=== PATIENT | female | born 1960 | race African-American/Black ===

== ENCOUNTER 2021-11-06 10:29 | Inpatient (IN) | payer BC, OTHER ==
[2021-11-06] VITALS (16 sets, daily range): BP systolic 69–110; BP diastolic 48–64
[~2021-11-06] VITALS: Ht 160 cm; Wt 123.8 kg
[2021-11-06] MEDS ORDERED: ETOMIDATE 2MG/ML 10ML VIAL IV ONE (11:15)
[2021-11-06] MEDS ORDERED: ROCURONIUM BROMIDE 10MG/ML VIAL 5ML IV ONE (11:15)
[2021-11-06] MEDS ORDERED: NOREPINEPHRINE 8MG/250ML PMX 250 ML IV ONE (11:30)
[2021-11-06] MEDS ORDERED: SODIUM CHLORIDE 0.9% 1,000 ML IV ONE ×3 (11:30→13:15)
[2021-11-06] MEDS ORDERED: NOREPINEPHRINE 8MG/250ML PMX 250 ML IV PRN ×3 (11:45→21:00)
[2021-11-06] MEDS ORDERED: MIDAZOLAM HCL 100 MG in DEXT 5% WATER 80 ML IV ONE (12:15)
[2021-11-06] MEDS ORDERED: MIDAZOLAM HCL 2 MG/2 ML VIAL IV ONE (12:15)
[2021-11-06] MEDS ORDERED: MIDAZOLAM HCL 100 MG in DEXT 5% WATER 80 ML IV PRN (12:15)
[2021-11-06] MEDS ORDERED: LIDOCAINE HCL 1% 20ML VIAL (Pyxis) INJ ONE (12:43)
[2021-11-06] MEDS ORDERED: PHENYLEPHRINE 50 MG in DEXT 5% WATER 245 ML IV PRN ×2 (13:15→13:30)
[2021-11-06] MEDS ORDERED: VANCOMYCIN 1G PREMIX 200 ML IV ONE (13:15)
[2021-11-06] MEDS ORDERED: PIPERACILLIN/TAZ 3.375G PREMIX 50 ML IV ONE (13:15)
[2021-11-06 13:23] LABS: BG BASE EXCESS -30.3 mmol/L (-2.0-2.0); BG CARBOXYHEMOGLOBIN 0.3 % (0.5-1.5); BG DEOXYHEMOGLOBIN 0.1 % (0.0-5.0); BG FRACTION INSPIRED OXYGEN 100; BG METHEMOGLOBIN 0.3 % (0.0-1.5); BG OXYGEN SATURATION 99.9 % (92.0-98.5); BG OXYHEMOGLOBIN 99.3 % (94.0-97.0); BG PCO2 19.6 mmHg (35.0-45.0); BG PH 6.808 (7.350-7.450); BG PO2 > 602.7 mmHg (75.0-100.0); BG SAMPLE SITE LEFT BRACHIAL; BG TOTAL HEMOGLOBIN 11.7 g/dL (12.0-18.0); BG VENT MODE VENT - AC
[2021-11-06] MEDS ORDERED: VANCOMYCIN 1GM PMX (XELLIA) 200 ML IV NR (13:30)
[2021-11-06] MEDS ORDERED: SODIUM BICARBONATE 8.4% 1 MEQ/ML 50ML SYR IV ONE (13:30)
[2021-11-06 14:10] LABS: CLARITY URINE CLEAR (CLEAR); COLOR URINE YELLOW (YELLOW); KETONES URINE 4+ (NEGATIVE); LEUKOCYTE ESTERASE URINE NEGATIVE (NEGATIVE); NITRITE URINE NEGATIVE (NEGATIVE); OCCULT BLOOD URINE TRACE (NEGATIVE); PROTEIN URINE 1+ (NEGATIVE); SPECIFIC GRAVITY URINE 1.022 (1.005-1.030); UROBILINOGEN URINE 0.2 E.U./dL (0.2-1.0)
[2021-11-06 14:26] LABS: *BENZODIAZEPINES SCREEN URINE NEGATIVE (NEGATIVE); *COCAINE SCREEN URINE PRESUMTIVE POSITIVE (NEGATIVE)
[2021-11-06 14:27] LABS: *AMPHETAMINES SCREEN URINE NEGATIVE (NEGATIVE); *BARBITURATES SCREEN URINE NEGATIVE (NEGATIVE); CANNABINOID URINE SCREEN NEGATIVE (NEGATIVE); METHADONE URINE SCREEN NEGATIVE (NEGATIVE); OPIATES URINE SCREEN NEGATIVE (NEGATIVE); PHENCYCLIDINE URINE SCREEN NEGATIVE (NEGATIVE)
[2021-11-06 14:40] LABS: HEMATOCRIT. 40.3 % (36.0-48.0); HEMOGLOBIN. 11.5 g/dL (12.0-16.0); MEAN CORPUSCULAR HEMOGLOBIN 26.2 pg (28.0-32.0); MEAN CORPUSCULAR VOLUME 91.8 fL (81.0-99.0); MEAN PLATELET VOLUME 10.3 fl (7.4-10.4); PLATELET 148 x1000/uL (130-400); RED BLOOD CELL COUNT 4.39 mill/uL (4.2-5.4); RED CELL DISTRIBUTION WIDTH 14.4 % (11.6-14.6)
[2021-11-06 14:47] LABS: CHLORIDE 107 mEq/L (98-107)
[2021-11-06 15:04] LABS: NUCLEATED RED BLOOD CELLS 1 /100 WBC; PLATELET ESTIMATE NORMAL
[2021-11-06 15:45] LABS: BETA HYDROXYBUTYRATE 14.3 mMol/L (0.0-0.3)
[2021-11-06] MEDS ORDERED: IPRATROPIUM/ALBUTEROL 0.5-3(2.5)MG/3ML NEB HHN PRN (15:45)
[2021-11-06] MEDS ORDERED: PIPERACILLIN/TAZOBACTAM 3.375 G in DEXTROSE 5% WATER 50 ML IV SCH (16:00)
[2021-11-06] MEDS ORDERED: SODIUM BICARBONATE 150 MEQ in SODIUM CHLORIDE 0.45% 1,000 ML IV SCH (16:30)
[2021-11-06] MEDS: PANTOPRAZOLE SODIUM 40 MG/VIAL IV SCH (18:17)
[2021-11-06 18:26] LABS: BG BASE EXCESS -28.3 mmol/L (-2.0-2.0); BG CARBOXYHEMOGLOBIN 0.5 % (0.5-1.5); BG DEOXYHEMOGLOBIN 0.2 % (0.0-5.0); BG FRACTION INSPIRED OXYGEN 70; BG HCO3 ACT 3.4 mmol/L (22.0-26.0); BG METHEMOGLOBIN 0.4 % (0.0-1.5); BG OXYGEN SATURATION 99.8 % (92.0-98.5); BG OXYHEMOGLOBIN 98.9 % (94.0-97.0); BG PCO2 17.6 mmHg (35.0-45.0); BG PH 6.901 (7.350-7.450); BG PO2 399.7 mmHg (75.0-100.0); BG SAMPLE SITE RIGHT RADIAL; BG TOTAL HEMOGLOBIN 13.4 g/dL (12.0-18.0); BG VENT MODE VENT - AC
[2021-11-06] MEDS ORDERED: SODIUM BICARBONATE 8.4% 1 MEQ/ML 50ML SYR IV NR ×2 (18:45→23:15)
[2021-11-06] MEDS ORDERED: PHENYLEPHRINE 50 MG in DEXTROSE 5% WATER 250 ML IV PRN (21:00)
[2021-11-06] MEDS ORDERED: SODIUM CHLORIDE 0.9% 1,000 ML IV SCH (21:45)
[2021-11-06] MEDS ORDERED: INSULIN REGULAR (DRIP) 100 UNITS in SODIUM CHLORIDE 0.9% 99 ML IV PRN (21:45)
[2021-11-06] MEDS ORDERED: ONDANSETRON HCL 4MG/2ML INJ IV PRN (21:45)
[2021-11-06] MEDS ORDERED: VASOPRESSIN 20 UNIT in SODIUM CHLORIDE 0.9% 99 ML IV PRN (21:45)
[2021-11-06] MEDS ORDERED: DEXTROSE 50% WATER 50ML SYRINGE IV PRN (22:00)
[2021-11-06] MEDS ORDERED: INSULIN REGULAR (DRIP) 100 UNITS in SODIUM CHLORIDE 0.9% 100 ML IV SCH (22:00)
[2021-11-06] MEDS: BLOOD SUGAR DIAGNOSTIC STRIP TEST SCH ×2 (22:15→23:13)
[2021-11-06] MEDS: SODIUM CHLORIDE 0.9% 1,000 ML IV SCH (22:15)
[2021-11-06] MEDS: INSULIN REGULAR 100U/100ML PMX 100 ML IV SCH (22:15)
[2021-11-06] MEDS: PIPERACILLIN/TAZOBACTAM 3.375 G in DEXTROSE 5% WATER 50 ML IV SCH (22:17)
[2021-11-06 22:54] LABS: BG BASE EXCESS -25.1 mmol/L (-2.0-2.0); BG CARBOXYHEMOGLOBIN 0.5 % (0.5-1.5); BG DEOXYHEMOGLOBIN 1.2 % (0.0-5.0); BG FRACTION INSPIRED OXYGEN 40; BG METHEMOGLOBIN 0.4 % (0.0-1.5); BG OXYGEN SATURATION 98.8 % (92.0-98.5); BG OXYHEMOGLOBIN 97.9 % (94.0-97.0); BG PCO2 15.7 mmHg (35.0-45.0); BG PH 7.023 (7.350-7.450); BG PO2 153.5 mmHg (75.0-100.0); BG SAMPLE SITE LEFT RADIAL; BG TOTAL HEMOGLOBIN 12.8 g/dL (12.0-18.0); BG TOTAL RESPIRATORY RATE 38 b/min; BG VENT MODE VENT - AC
[2021-11-06] MEDS: PHENYLEPHRINE 100 MG in DEXT 5% WATER 240 ML IV PRN (23:15)
[2021-11-07] VITALS (97 sets, daily range): BP systolic 80–157; BP diastolic 26–75
[2021-11-07] MEDS: BLOOD SUGAR DIAGNOSTIC STRIP TEST SCH ×22 (00:23→23:41)
[2021-11-07 00:25] LABS: BASOPHILS % 0.4 % (0.0-2.0); EOSINOPHILS % 0.5 % (0.0-5.0); HEMATOCRIT. 38.6 % (36.0-48.0); HEMOGLOBIN. 11.2 g/dL (12.0-16.0); LYMPHOCYTES % 9.6 % (20.0-50.0); MEAN CORPUSCULAR HEMOGLOBIN 26.4 pg (28.0-32.0); MEAN CORPUSCULAR VOLUME 90.7 fL (81.0-99.0); MEAN PLATELET VOLUME 10.3 fl (7.4-10.4); MONOCYTES % 1.1 % (2.0-8.0); NEUTROPHILS % 88.4 % (40.0-76.0); PLATELET 161 x1000/uL (130-400); RED BLOOD CELL COUNT 4.25 mill/uL (4.2-5.4)
[2021-11-07 00:36] LABS: PHOSPHORUS 7.8 mg/dL (2.5-4.9)
[2021-11-07] MEDS: SODIUM CHLORIDE 0.9% 1,000 ML IV SCH ×2 (01:57→06:23)
[2021-11-07] MEDS: IPRATROPIUM/ALBUTEROL 0.5-3(2.5)MG/3ML NEB HHN SCH ×4 (02:24→19:41)
[2021-11-07] MEDS: INSULIN REGULAR 100U/100ML PMX 100 ML IV SCH ×4 (03:20→15:21)
[2021-11-07] MEDS: PHENYLEPHRINE 100 MG in DEXT 5% WATER 240 ML IV PRN ×3 (03:25→15:11)
[2021-11-07] MEDS: NOREPINEPHRINE 8 MG in DEXT 5% WATER 242 ML IV PRN ×2 (03:30→08:38)
[2021-11-07 05:27] LABS: BASOPHILS % 0.1 % (0.0-2.0); EOSINOPHILS % 0.6 % (0.0-5.0); HEMATOCRIT. 37.2 % (36.0-48.0); HEMOGLOBIN. 11.4 g/dL (12.0-16.0); LYMPHOCYTES % 8.3 % (20.0-50.0); MEAN CORPUSCULAR HEMOGLOBIN 26.6 pg (28.0-32.0); MEAN CORPUSCULAR VOLUME 86.4 fL (81.0-99.0); MEAN PLATELET VOLUME 10.1 fl (7.4-10.4); MONOCYTES % 1.9 % (2.0-8.0); NEUTROPHILS % 89.1 % (40.0-76.0); PLATELET 160 x1000/uL (130-400); RED BLOOD CELL COUNT 4.31 mill/uL (4.2-5.4); RED CELL DISTRIBUTION WIDTH 13.5 % (11.6-14.6)
[2021-11-07 05:35] LABS: PHOSPHORUS 2.5 mg/dL (2.5-4.9)
[2021-11-07] MEDS: PIPERACILLIN/TAZOBACTAM 3.375 G in DEXTROSE 5% WATER 50 ML IV SCH ×3 (06:44→22:22)
[2021-11-07 08:27] LABS: BG BASE EXCESS -8.2 mmol/L (-2.0-2.0); BG CARBOXYHEMOGLOBIN 0.3 % (0.5-1.5); BG DEOXYHEMOGLOBIN 0.9 % (0.0-5.0); BG METHEMOGLOBIN 0.3 % (0.0-1.5); BG OXYGEN SATURATION 99.1 % (92.0-98.5); BG OXYHEMOGLOBIN 98.5 % (94.0-97.0); BG PCO2 24.9 mmHg (35.0-45.0); BG PH 7.399 (7.350-7.450); BG PO2 191.2 mmHg (75.0-100.0); BG SAMPLE SITE RIGHT RADIAL; BG TOTAL HEMOGLOBIN 11.6 g/dL (12.0-18.0); BG VENT MODE VENT - AC
[2021-11-07] MEDS: PANTOPRAZOLE SODIUM 40 MG/VIAL IV SCH (08:41)
[2021-11-07] MEDS: KCL 20MEQ/100ML PREMIX 100 ML IV SCH ×3 (08:41→13:20)
[2021-11-07] MEDS: MIDODRINE HCL 5MG TABLET PO SCH ×3 (10:29→17:44)
[2021-11-07] MEDS: DEXTROSE 5% WATER 1,000 ML IV SCH ×2 (10:30→17:45)
[2021-11-07] MEDS ORDERED: VANCOMYCIN 750MG PREMIX 150 ML IV SCH ×2 (14:00→17:00)
[2021-11-07] MEDS: MIDAZOLAM HCL 100 MG in SODIUM CHLORIDE 0.9% 80 ML IV PRN (20:05)
[2021-11-07] MEDS ORDERED: DEXTROSE 50% WATER 50ML SYRINGE IV PRN (22:15)
[2021-11-07] MEDS: DEXT 5%/0.45% NACL 1000ML 1,000 ML IV SCH (22:23)
[2021-11-07] MEDS: ACETAMINOPHEN 325MG TABLET PO PRN (22:54)
[2021-11-07] MEDS: INSULIN LISPRO 100 UNITS/ML SUBCUT SCH (23:42)
[2021-11-08] VITALS (91 sets, daily range): BP systolic 80–135; BP diastolic 40–68
[2021-11-08] MEDS: NOREPINEPHRINE 8 MG in DEXT 5% WATER 242 ML IV PRN ×2 (01:50→15:48)
[2021-11-08 05:57] LABS: BASOPHILS % 0.1 % (0.0-2.0); EOSINOPHILS % 0.1 % (0.0-5.0); HEMATOCRIT. 31.4 % (36.0-48.0); HEMOGLOBIN. 10.5 g/dL (12.0-16.0); LYMPHOCYTES % 9.1 % (20.0-50.0); MEAN CORPUSCULAR VOLUME 80.9 fL (81.0-99.0); MEAN PLATELET VOLUME 9.9 fl (7.4-10.4); MONOCYTES % 1.3 % (2.0-8.0); NEUTROPHILS % 89.4 % (40.0-76.0); PLATELET 87 x1000/uL (130-400); RED BLOOD CELL COUNT 3.88 mill/uL (4.2-5.4)
[2021-11-08] MEDS: PIPERACILLIN/TAZOBACTAM 3.375 G in DEXTROSE 5% WATER 50 ML IV SCH ×3 (06:52→22:13)
[2021-11-08] MEDS: BLOOD SUGAR DIAGNOSTIC STRIP TEST SCH ×3 (06:53→18:33)
[2021-11-08] MEDS: INSULIN LISPRO 100 UNITS/ML SUBCUT SCH ×3 (06:53→18:35)
[2021-11-08] MEDS: DEXT 5%/0.45% NACL 1000ML 1,000 ML IV SCH (07:54)
[2021-11-08] MEDS: MIDODRINE HCL 5MG TABLET PO SCH ×3 (07:55→18:33)
[2021-11-08] MEDS: PANTOPRAZOLE SODIUM 40 MG/VIAL IV SCH (07:55)
[2021-11-08 08:45] LABS: BG BASE EXCESS -5.2 mmol/L (-2.0-2.0); BG CARBOXYHEMOGLOBIN 0.2 % (0.5-1.5); BG DEOXYHEMOGLOBIN 1.1 % (0.0-5.0); BG HCO3 ACT 17.7 mmol/L (22.0-26.0); BG METHEMOGLOBIN 0.3 % (0.0-1.5); BG OXYGEN SATURATION 98.9 % (92.0-98.5); BG OXYHEMOGLOBIN 98.4 % (94.0-97.0); BG PCO2 26.7 mmHg (35.0-45.0); BG PO2 150.4 mmHg (75.0-100.0); BG SAMPLE SITE LEFT RADIAL; BG TOTAL HEMOGLOBIN 10.9 g/dL (12.0-18.0); BG VENT MODE VENT - AC
[2021-11-08] MEDS: IPRATROPIUM/ALBUTEROL 0.5-3(2.5)MG/3ML NEB HHN SCH ×3 (08:55→20:10)
[2021-11-08] MEDS ORDERED: INSULIN GLARGINE UD 100 UNITS/ML SYR SUBCUT NR (10:30)
[2021-11-08] MEDS: SODIUM CHLORIDE 0.45% 1,000 ML IV SCH (11:27)
[2021-11-08] MEDS: PHENYLEPHRINE 100 MG in DEXT 5% WATER 240 ML IV PRN (14:02)
[2021-11-08] MEDS: ACETAMINOPHEN 325MG TABLET PO PRN (20:35)
[2021-11-08] MEDS: MIDAZOLAM HCL 100 MG in SODIUM CHLORIDE 0.9% 80 ML IV PRN (21:03)
[2021-11-08] MEDS: INSULIN GLARGINE UD 100 UNITS/ML SYR SUBCUT SCH (22:14)
[2021-11-09] VITALS (95 sets, daily range): BP systolic 84–136; BP diastolic 45–84
[2021-11-09] MEDS: BLOOD SUGAR DIAGNOSTIC STRIP TEST SCH ×4 (00:45→18:53)
[2021-11-09] MEDS: SODIUM CHLORIDE 0.45% 1,000 ML IV SCH ×2 (00:45→10:41)
[2021-11-09] MEDS: IPRATROPIUM/ALBUTEROL 0.5-3(2.5)MG/3ML NEB HHN SCH ×4 (02:10→20:21)
[2021-11-09] MEDS: INSULIN LISPRO 100 UNITS/ML SUBCUT SCH ×4 (05:39→18:54)
[2021-11-09] MEDS: NOREPINEPHRINE 8 MG in DEXT 5% WATER 242 ML IV PRN (05:40)
[2021-11-09] MEDS: PHENYLEPHRINE 100 MG in DEXT 5% WATER 240 ML IV PRN ×2 (05:41→18:53)
[2021-11-09 05:54] LABS: BASOPHILS % 0.2 % (0.0-2.0); EOSINOPHILS % 0.8 % (0.0-5.0); HEMATOCRIT. 27.2 % (36.0-48.0); HEMOGLOBIN. 8.9 g/dL (12.0-16.0); LYMPHOCYTES % 9.5 % (20.0-50.0); MEAN CORPUSCULAR VOLUME 82.9 fL (81.0-99.0); MEAN PLATELET VOLUME 9.8 fl (7.4-10.4); MONOCYTES % 2.9 % (2.0-8.0); NEUTROPHILS % 86.6 % (40.0-76.0); PLATELET 65 x1000/uL (130-400); RED BLOOD CELL COUNT 3.28 mill/uL (4.2-5.4)
[2021-11-09] MEDS: METOCLOPRAMIDE HCL 10MG/2ML VIAL IV SCH ×3 (05:59→22:04)
[2021-11-09] MEDS: PIPERACILLIN/TAZOBACTAM 3.375 G in DEXTROSE 5% WATER 50 ML IV SCH ×3 (06:05→22:05)
[2021-11-09 06:06] LABS: PARTIAL THROMBOPLASTIN TIME 41.7 sec (23.4-31.0); PROTHROMBIN TIME 10.7 sec (9.6-11.0)
[2021-11-09 06:16] LABS: CHLORIDE 104 mEq/L (98-107)
[2021-11-09 06:22] LABS: PHOSPHORUS 1.6 mg/dL (2.5-4.9)
[2021-11-09 06:37] LABS: CREATINE KINASE 2958 IU/L (26-192)
[2021-11-09] MEDS: PANTOPRAZOLE SODIUM 40 MG/VIAL IV SCH (08:35)
[2021-11-09] MEDS: MIDODRINE HCL 5MG TABLET PO SCH ×3 (08:35→16:06)
[2021-11-09 09:30] LABS: BG BASE EXCESS -4.2 mmol/L (-2.0-2.0); BG CARBOXYHEMOGLOBIN 1.4 % (0.5-1.5); BG DEOXYHEMOGLOBIN 0.7 % (0.0-5.0); BG FRACTION INSPIRED OXYGEN 35; BG METHEMOGLOBIN 0.1 % (0.0-1.5); BG OXYGEN SATURATION 99.3 % (92.0-98.5); BG OXYHEMOGLOBIN 97.8 % (94.0-97.0); BG PH 7.449 (7.350-7.450); BG PO2 195.3 mmHg (75.0-100.0); BG SAMPLE SITE LEFT RADIAL; BG TOTAL HEMOGLOBIN 9.1 g/dL (12.0-18.0); BG VENT MODE VENT - AC
[2021-11-09] MEDS: INSULIN GLARGINE UD 100 UNITS/ML SYR SUBCUT SCH ×2 (10:40→22:04)
[2021-11-09] MEDS ORDERED: CALCIUM GLUCONATE 100MG/ML 10ML VIAL IV ONE (14:00)
[2021-11-09] MEDS ORDERED: MAGNESIUM 2 G PREMIX 50 ML IV NR (14:00)
[2021-11-09] MEDS ORDERED: SODIUM PHOS,M-BASIC-D-BASIC 15 MM in DEXT 5% WATER 245 ML IV ONE (16:00)
[2021-11-09] MEDS ORDERED: CALCIUM GLUCONATE 1GM PREMIX 50 ML IV NR (16:00)
[2021-11-10] VITALS (94 sets, daily range): BP systolic 73–137; BP diastolic 32–73
[2021-11-10] MEDS: IPRATROPIUM/ALBUTEROL 0.5-3(2.5)MG/3ML NEB HHN SCH ×4 (00:07→19:38)
[2021-11-10] MEDS: BLOOD SUGAR DIAGNOSTIC STRIP TEST SCH ×5 (00:19→23:38)
[2021-11-10] MEDS: INSULIN LISPRO 100 UNITS/ML SUBCUT SCH ×5 (00:27→23:39)
[2021-11-10] MEDS: SODIUM CHLORIDE 0.45% 1,000 ML IV SCH (01:12)
[2021-11-10] MEDS: ACETAMINOPHEN 325MG TABLET PO PRN (04:07)
[2021-11-10] MEDS: PHENYLEPHRINE 100 MG in DEXT 5% WATER 240 ML IV PRN ×2 (04:25→18:29)
[2021-11-10 06:08] LABS: CHLORIDE 100 mEq/L (98-107)
[2021-11-10 06:12] LABS: BASOPHILS % 0.4 % (0.0-2.0); HEMATOCRIT. 24.4 % (36.0-48.0); HEMOGLOBIN. 8.1 g/dL (12.0-16.0); LYMPHOCYTES % 8.2 % (20.0-50.0); MEAN CORPUSCULAR HEMOGLOBIN 27.3 pg (28.0-32.0); MEAN CORPUSCULAR VOLUME 82.7 fL (81.0-99.0); MEAN PLATELET VOLUME 10.4 fl (7.4-10.4); MONOCYTES % 4.6 % (2.0-8.0); NEUTROPHILS % 85.8 % (40.0-76.0); PLATELET 69 x1000/uL (130-400); RED BLOOD CELL COUNT 2.95 mill/uL (4.2-5.4); RED CELL DISTRIBUTION WIDTH 12.7 % (11.6-14.6)
[2021-11-10 06:24] LABS: PHOSPHORUS 1.7 mg/dL (2.5-4.9)
[2021-11-10] MEDS: PIPERACILLIN/TAZOBACTAM 3.375 G in DEXTROSE 5% WATER 50 ML IV SCH ×3 (06:30→21:52)
[2021-11-10] MEDS: METOCLOPRAMIDE HCL 10MG/2ML VIAL IV SCH ×3 (06:30→21:52)
[2021-11-10 07:49] LABS: BG BASE EXCESS -7.1 mmol/L (-2.0-2.0); BG CARBOXYHEMOGLOBIN 1.4 % (0.5-1.5); BG DEOXYHEMOGLOBIN 0.9 % (0.0-5.0); BG HCO3 ACT 16.4 mmol/L (22.0-26.0); BG METHEMOGLOBIN 0.4 % (0.0-1.5); BG OXYGEN SATURATION 99.1 % (92.0-98.5); BG OXYHEMOGLOBIN 97.3 % (94.0-97.0); BG PCO2 26.1 mmHg (35.0-45.0); BG PH 7.417 (7.350-7.450); BG PO2 151.2 mmHg (75.0-100.0); BG SAMPLE SITE LEFT RADIAL; BG TOTAL HEMOGLOBIN 8.5 g/dL (12.0-18.0); BG VENT MODE VENT - AC
[2021-11-10] MEDS: SODIUM CHLORIDE 0.9% 1,000 ML IV SCH ×2 (09:11→22:05)
[2021-11-10] MEDS: PANTOPRAZOLE SODIUM 40 MG/VIAL IV SCH (09:11)
[2021-11-10] MEDS: MIDODRINE HCL 5MG TABLET PO SCH ×3 (09:12→17:14)
[2021-11-10] MEDS: INSULIN GLARGINE UD 100 UNITS/ML SYR SUBCUT SCH ×2 (09:43→21:52)
[2021-11-10] MEDS ORDERED: MAGNESIUM 2 G PREMIX 50 ML IV SCH (10:00)
[2021-11-10 13:39] LABS: CREATINE KINASE 722 IU/L (26-192)
[2021-11-10] MEDS ORDERED: VANCOMYCIN 1GM PMX (XELLIA) 200 ML IV NR (14:00)
[2021-11-10] MEDS ORDERED: SODIUM PHOS,M-BASIC-D-BASIC 30 MM in DEXT 5% WATER 500 ML IV SCH (16:00)
[2021-11-10] MEDS ORDERED: ZINC SULFATE 220 MG ( 50 ) CAPSULE PO NR (16:30)
[2021-11-10 16:47] LABS: BG BASE EXCESS -9.4 mmol/L (-2.0-2.0); BG CARBOXYHEMOGLOBIN 0.9 % (0.5-1.5); BG DEOXYHEMOGLOBIN 0.8 % (0.0-5.0); BG HCO3 ACT 13.7 mmol/L (22.0-26.0); BG METHEMOGLOBIN 0.2 % (0.0-1.5); BG OXYGEN SATURATION 99.2 % (92.0-98.5); BG OXYHEMOGLOBIN 98.1 % (94.0-97.0); BG PCO2 21.2 mmHg (35.0-45.0); BG PH 7.428 (7.350-7.450); BG PO2 159.7 mmHg (75.0-100.0); BG SAMPLE SITE LEFT RADIAL; BG VENT MODE VENT - SIMV
[2021-11-10] MEDS: ASCORBIC ACID 500 MG TABLET PO SCH (17:13)
[2021-11-10] MEDS ORDERED: CEFTRIAXONE 2 G PREMIX 50 ML IV SCH (22:00)
[2021-11-10] MEDS: CEFTRIAXONE 2 G in DEXTROSE 5% WATER 50 ML IV SCH (23:39)
[2021-11-11] VITALS (88 sets, daily range): BP systolic 95–127; BP diastolic 47–84
[2021-11-11] MEDS: IPRATROPIUM/ALBUTEROL 0.5-3(2.5)MG/3ML NEB HHN SCH ×4 (01:58→20:07)
[2021-11-11 05:43] LABS: PHOSPHORUS 3.3 mg/dL (2.5-4.9)
[2021-11-11] MEDS: INSULIN LISPRO 100 UNITS/ML SUBCUT SCH ×3 (05:47→17:10)
[2021-11-11] MEDS: BLOOD SUGAR DIAGNOSTIC STRIP TEST SCH ×3 (05:47→17:10)
[2021-11-11 06:10] LABS: HIV SCREEN 4G Non Reactive (Non Reactive)
[2021-11-11] MEDS: METOCLOPRAMIDE HCL 10MG/2ML VIAL IV SCH ×3 (06:13→22:01)
[2021-11-11 07:09] LABS: BASOPHILS % 0.5 % (0.0-2.0); EOSINOPHILS % 4.7 % (0.0-5.0); HEMATOCRIT. 21.8 % (36.0-48.0); HEMOGLOBIN. 7.3 g/dL (12.0-16.0); LYMPHOCYTES % 8.1 % (20.0-50.0); MEAN CORPUSCULAR HEMOGLOBIN 27.7 pg (28.0-32.0); MEAN CORPUSCULAR VOLUME 82.6 fL (81.0-99.0); MEAN PLATELET VOLUME 10.5 fl (7.4-10.4); MONOCYTES % 11.9 % (2.0-8.0); NEUTROPHILS % 74.8 % (40.0-76.0); PLATELET 72 x1000/uL (130-400); RED BLOOD CELL COUNT 2.64 mill/uL (4.2-5.4); RED CELL DISTRIBUTION WIDTH 12.6 % (11.6-14.6)
[2021-11-11] MEDS: ASCORBIC ACID 500 MG TABLET PO SCH (08:58)
[2021-11-11] MEDS: PANTOPRAZOLE SODIUM 40 MG/VIAL IV SCH (08:58)
[2021-11-11] MEDS: MIDODRINE HCL 5MG TABLET PO SCH ×3 (08:59→17:09)
[2021-11-11] MEDS: ZINC SULFATE 220 MG ( 50 ) CAPSULE PO SCH (08:59)
[2021-11-11] MEDS: INSULIN GLARGINE UD 100 UNITS/ML SYR SUBCUT SCH ×2 (09:00→22:00)
[2021-11-11 09:16] LABS: BG BASE EXCESS -7.4 mmol/L (-2.0-2.0); BG DEOXYHEMOGLOBIN 0.9 % (0.0-5.0); BG FRACTION INSPIRED OXYGEN 35; BG HCO3 ACT 16.2 mmol/L (22.0-26.0); BG METHEMOGLOBIN 0.5 % (0.0-1.5); BG OXYGEN SATURATION 99.1 % (92.0-98.5); BG OXYHEMOGLOBIN 97.6 % (94.0-97.0); BG PCO2 25.6 mmHg (35.0-45.0); BG PH 7.419 (7.350-7.450); BG PO2 188.2 mmHg (75.0-100.0); BG SAMPLE SITE LEFT RADIAL; BG TOTAL HEMOGLOBIN 7.5 g/dL (12.0-18.0); BG TOTAL RESPIRATORY RATE 24 b/min; BG VENT MODE VENT - SIMV
[2021-11-11] MEDS: SODIUM CHLORIDE 0.9% 1,000 ML IV SCH (11:34)
[2021-11-11] MEDS: DEXTROSE 50% WATER 50ML SYRINGE IV PRN ×2 (11:35→17:10)
[2021-11-11 13:12] LABS: BG BASE EXCESS -9.3 mmol/L (-2.0-2.0); BG CARBOXYHEMOGLOBIN 0.5 % (0.5-1.5); BG DEOXYHEMOGLOBIN 0.8 % (0.0-5.0); BG FRACTION INSPIRED OXYGEN 35; BG METHEMOGLOBIN 0.6 % (0.0-1.5); BG OXYGEN SATURATION 99.2 % (92.0-98.5); BG OXYHEMOGLOBIN 98.1 % (94.0-97.0); BG PCO2 21.6 mmHg (35.0-45.0); BG PH 7.429 (7.350-7.450); BG PO2 181.3 mmHg (75.0-100.0); BG SAMPLE SITE LEFT RADIAL; BG VENT MODE VENT - CPAP
[2021-11-11] MEDS: HYDROCODONE/ACETAMINOPHEN 5/325MG TABLET PO PRN (17:09)
[2021-11-11 17:20] LABS: FERRITIN 879 ng/mL (10-291)
[2021-11-11 17:31] LABS: HEPATITIS B SURFACE ANTIGEN NEGATIVE
[2021-11-11 20:31] LABS: VITAMIN B12 SERUM >2000 pg/mL pg/mL (211-911)
[2021-11-11] MEDS: CEFTRIAXONE 2 G in DEXTROSE 5% WATER 50 ML IV SCH (22:01)
[2021-11-12] VITALS (94 sets, daily range): BP systolic 92–141; BP diastolic 40–107
[2021-11-12] MEDS: HYDROCODONE/ACETAMINOPHEN 5/325MG TABLET PO PRN (00:09)
[2021-11-12] MEDS: BLOOD SUGAR DIAGNOSTIC STRIP TEST SCH ×4 (00:47→18:42)
[2021-11-12] MEDS: SODIUM CHLORIDE 0.9% 1,000 ML IV SCH ×2 (03:15→15:50)
[2021-11-12] MEDS: METOCLOPRAMIDE HCL 10MG/2ML VIAL IV SCH ×3 (05:31→22:14)
[2021-11-12] MEDS: INSULIN LISPRO 100 UNITS/ML SUBCUT SCH ×4 (06:00→18:00)
[2021-11-12 06:14] LABS: HEMATOCRIT. 22.1 % (36.0-48.0); HEMOGLOBIN. 7.4 g/dL (12.0-16.0); MEAN CORPUSCULAR VOLUME 83.6 fL (81.0-99.0); MEAN PLATELET VOLUME 10.3 fl (7.4-10.4); PLATELET 93 x1000/uL (130-400); RED BLOOD CELL COUNT 2.65 mill/uL (4.2-5.4); RED CELL DISTRIBUTION WIDTH 12.9 % (11.6-14.6)
[2021-11-12 06:57] LABS: PHOSPHORUS 4.1 mg/dL (2.5-4.9)
[2021-11-12] MEDS: IPRATROPIUM/ALBUTEROL 0.5-3(2.5)MG/3ML NEB HHN SCH ×3 (07:58→20:44)
[2021-11-12 09:14] LABS: BG BASE EXCESS -7.7 mmol/L (-2.0-2.0); BG CARBOXYHEMOGLOBIN 0.9 % (0.5-1.5); BG DEOXYHEMOGLOBIN 0.8 % (0.0-5.0); BG FRACTION INSPIRED OXYGEN 35; BG HCO3 ACT 15.9 mmol/L (22.0-26.0); BG METHEMOGLOBIN 0.6 % (0.0-1.5); BG OXYGEN SATURATION 99.2 % (92.0-98.5); BG OXYHEMOGLOBIN 97.7 % (94.0-97.0); BG PCO2 25.4 mmHg (35.0-45.0); BG PH 7.415 (7.350-7.450); BG PO2 197.1 mmHg (75.0-100.0); BG SAMPLE SITE LEFT RADIAL; BG TOTAL HEMOGLOBIN 7.7 g/dL (12.0-18.0); BG TOTAL RESPIRATORY RATE 17 b/min; BG VENT MODE VENT - SIMV
[2021-11-12 09:15] LABS: PLATELET ESTIMATE DECREASED
[2021-11-12] MEDS: INSULIN GLARGINE UD 100 UNITS/ML SYR SUBCUT SCH ×2 (10:00→21:32)
[2021-11-12] MEDS: MIDODRINE HCL 5MG TABLET PO SCH ×3 (10:16→15:56)
[2021-11-12] MEDS: PANTOPRAZOLE SODIUM 40 MG/VIAL IV SCH ×2 (10:16→15:55)
[2021-11-12] MEDS: ZINC SULFATE 220 MG ( 50 ) CAPSULE PO SCH (10:16)
[2021-11-12] MEDS: ASCORBIC ACID 500 MG TABLET PO SCH (10:16)
[2021-11-12] MEDS ORDERED: NALOXONE HCL 0.4MG/ML VIAL IV PRN (10:45)
[2021-11-12 11:32] LABS: BG BASE EXCESS -8.9 mmol/L (-2.0-2.0); BG CARBOXYHEMOGLOBIN 0.5 % (0.5-1.5); BG FRACTION INSPIRED OXYGEN 35; BG HCO3 ACT 14.7 mmol/L (22.0-26.0); BG METHEMOGLOBIN 0.8 % (0.0-1.5); BG OXYHEMOGLOBIN 97.7 % (94.0-97.0); BG PCO2 23.5 mmHg (35.0-45.0); BG PH 7.413 (7.350-7.450); BG PO2 186.7 mmHg (75.0-100.0); BG SAMPLE SITE RIGHT RADIAL; BG TOTAL HEMOGLOBIN 7.3 g/dL (12.0-18.0); BG VENT MODE VENT - CPAP
[2021-11-12] MEDS: MORPHINE SULFATE 2 MG/ML CPJ (NOT FOR IM USE) IV PRN ×3 (11:32→22:18)
[2021-11-12 16:21] LABS: BG BASE EXCESS -9.2 mmol/L (-2.0-2.0); BG CARBOXYHEMOGLOBIN 0.8 % (0.5-1.5); BG DEOXYHEMOGLOBIN 2.3 % (0.0-5.0); BG FRACTION INSPIRED OXYGEN 40; BG HCO3 ACT 14.8 mmol/L (22.0-26.0); BG METHEMOGLOBIN 0.3 % (0.0-1.5); BG OXYGEN SATURATION 97.7 % (92.0-98.5); BG OXYHEMOGLOBIN 96.6 % (94.0-97.0); BG PCO2 25.6 mmHg (35.0-45.0); BG PH 7.379 (7.350-7.450); BG PO2 100.4 mmHg (75.0-100.0); BG SAMPLE SITE LEFT RADIAL; BG TOTAL HEMOGLOBIN 8.4 g/dL (12.0-18.0); BG VENT MODE COOL AEROSOL
[2021-11-12] MEDS: DEXTROSE 50% WATER 50ML SYRINGE IV PRN (18:44)
[2021-11-12 21:28] LABS: HEMATOCRIT 24.7 % (36.0-48.0); HEMOGLOBIN 8.3 g/dL (12.0-16.0)
[2021-11-12] MEDS: CEFTRIAXONE 2 G in DEXTROSE 5% WATER 50 ML IV SCH (22:14)
[2021-11-13] VITALS (62 sets, daily range): BP systolic 99–129; BP diastolic 41–75
[2021-11-13] MEDS: IPRATROPIUM/ALBUTEROL 0.5-3(2.5)MG/3ML NEB HHN SCH ×4 (01:23→20:32)
[2021-11-13] MEDS: MORPHINE SULFATE 2 MG/ML CPJ (NOT FOR IM USE) IV PRN ×3 (05:03→22:57)
[2021-11-13] MEDS: METOCLOPRAMIDE HCL 10MG/2ML VIAL IV SCH ×3 (05:03→22:53)
[2021-11-13 05:55] LABS: HEMATOCRIT. 22.5 % (36.0-48.0); HEMOGLOBIN. 7.5 g/dL (12.0-16.0); MEAN CORPUSCULAR HEMOGLOBIN 28.4 pg (28.0-32.0); MEAN CORPUSCULAR VOLUME 85.2 fL (81.0-99.0); MEAN PLATELET VOLUME 9.6 fl (7.4-10.4); PHOSPHORUS 4.8 mg/dL (2.5-4.9); PLATELET 171 x1000/uL (130-400); RED BLOOD CELL COUNT 2.64 mill/uL (4.2-5.4); RED CELL DISTRIBUTION WIDTH 13.7 % (11.6-14.6)
[2021-11-13] MEDS: BLOOD SUGAR DIAGNOSTIC STRIP TEST SCH ×5 (06:00→23:01)
[2021-11-13] MEDS: INSULIN LISPRO 100 UNITS/ML SUBCUT SCH ×5 (06:57→23:01)
[2021-11-13] MEDS: SODIUM CHLORIDE 0.9% 1,000 ML IV SCH ×2 (07:46→21:43)
[2021-11-13 08:07] LABS: BG BASE EXCESS -12.6 mmol/L (-2.0-2.0); BG CARBOXYHEMOGLOBIN 1.9 % (0.5-1.5); BG DEOXYHEMOGLOBIN 3.5 % (0.0-5.0); BG HCO3 ACT 12.3 mmol/L (22.0-26.0); BG OXYGEN SATURATION 96.4 % (92.0-98.5); BG OXYHEMOGLOBIN 94.6 % (94.0-97.0); BG PCO2 24.7 mmHg (35.0-45.0); BG PH 7.316 (7.350-7.450); BG PO2 92.7 mmHg (75.0-100.0); BG SAMPLE SITE LEFT RADIAL; BG TOTAL HEMOGLOBIN 7.1 g/dL (12.0-18.0); BG VENT MODE NASAL CANNULA
[2021-11-13] MEDS: ASCORBIC ACID 500 MG TABLET PO SCH (09:49)
[2021-11-13] MEDS: ZINC SULFATE 220 MG ( 50 ) CAPSULE PO SCH (09:49)
[2021-11-13] MEDS: CITRIC ACID/SODIUM CITRATE SOLN 30ML UDC PO SCH ×3 (09:49→16:51)
[2021-11-13] MEDS: PANTOPRAZOLE SODIUM 40 MG/VIAL IV SCH ×2 (09:49→16:54)
[2021-11-13] MEDS: MIDODRINE HCL 5MG TABLET PO SCH ×3 (09:49→16:51)
[2021-11-13] MEDS: INSULIN GLARGINE UD 100 UNITS/ML SYR SUBCUT SCH ×2 (09:50→22:53)
[2021-11-13 12:37] LABS: PLATELET ESTIMATE NORMAL
[2021-11-13] MEDS: CEFTRIAXONE 2 G in DEXTROSE 5% WATER 50 ML IV SCH (22:59)
[2021-11-13 23:53] LABS: HEMATOCRIT 24.3 % (36.0-48.0); HEMOGLOBIN 8.1 g/dL (12.0-16.0)
[2021-11-14] VITALS (48 sets, daily range): BP systolic 94–145; BP diastolic 45–75
[2021-11-14] MEDS: IPRATROPIUM/ALBUTEROL 0.5-3(2.5)MG/3ML NEB HHN SCH ×4 (01:07→20:28)
[2021-11-14] MEDS: MORPHINE SULFATE 2 MG/ML CPJ (NOT FOR IM USE) IV PRN (04:11)
[2021-11-14] MEDS: METOCLOPRAMIDE HCL 10MG/2ML VIAL IV SCH ×3 (05:36→22:53)
[2021-11-14] MEDS: INSULIN LISPRO 100 UNITS/ML SUBCUT SCH ×4 (05:37→23:00)
[2021-11-14] MEDS: BLOOD SUGAR DIAGNOSTIC STRIP TEST SCH ×4 (05:38→23:00)
[2021-11-14 05:59] LABS: HEMATOCRIT. 23.7 % (36.0-48.0); MEAN CORPUSCULAR HEMOGLOBIN 28.6 pg (28.0-32.0); MEAN CORPUSCULAR VOLUME 85.2 fL (81.0-99.0); MEAN PLATELET VOLUME 8.7 fl (7.4-10.4); PLATELET 264 x1000/uL (130-400); RED BLOOD CELL COUNT 2.78 mill/uL (4.2-5.4); RED CELL DISTRIBUTION WIDTH 14.1 % (11.6-14.6)
[2021-11-14] MEDS: PANTOPRAZOLE SODIUM 40 MG/VIAL IV SCH ×2 (08:19→17:35)
[2021-11-14] MEDS: ASCORBIC ACID 500 MG TABLET PO SCH (08:19)
[2021-11-14] MEDS: LORAZEPAM 2MG/ML CPJ IV PRN (08:19)
[2021-11-14] MEDS: CITRIC ACID/SODIUM CITRATE SOLN 30ML UDC PO SCH ×3 (08:19→17:35)
[2021-11-14] MEDS: ZINC SULFATE 220 MG ( 50 ) CAPSULE PO SCH (08:19)
[2021-11-14] MEDS: MIDODRINE HCL 5MG TABLET PO SCH ×3 (08:20→17:35)
[2021-11-14 10:17] LABS: BG BASE EXCESS -6.4 mmol/L (-2.0-2.0); BG CARBOXYHEMOGLOBIN 1.6 % (0.5-1.5); BG FRACTION INSPIRED OXYGEN 21; BG HCO3 ACT 18.3 mmol/L (22.0-26.0); BG METHEMOGLOBIN 0.3 % (0.0-1.5); BG OXYGEN SATURATION 94.9 % (92.0-98.5); BG OXYHEMOGLOBIN 93.1 % (94.0-97.0); BG PCO2 33.3 mmHg (35.0-45.0); BG PH 7.359 (7.350-7.450); BG PO2 76.6 mmHg (75.0-100.0); BG SAMPLE SITE LEFT RADIAL; BG TOTAL HEMOGLOBIN 7.9 g/dL (12.0-18.0); BG VENT MODE ROOM AIR
[2021-11-14] MEDS ORDERED: VANCOMYCIN 750MG PREMIX 150 ML IV NR (11:00)
[2021-11-14] MEDS: HYDROCODONE/ACETAMINOPHEN 5/325MG TABLET PO PRN (11:04)
[2021-11-14] MEDS: INSULIN GLARGINE UD 100 UNITS/ML SYR SUBCUT SCH ×2 (11:04→22:55)
[2021-11-14] MEDS ORDERED: BLOOD SUGAR DIAGNOSTIC STRIP TEST SCH (12:00)
[2021-11-14 13:12] LABS: HEMATOCRIT 23.7 % (36.0-48.0); HEMOGLOBIN 7.9 g/dL (12.0-16.0)
[2021-11-14 17:08] LABS: PLATELET ESTIMATE NORMAL
[2021-11-14] MEDS: SODIUM CHLORIDE 0.9% 1,000 ML IV SCH (17:36)
[2021-11-14] MEDS: CEFTRIAXONE 2 G in DEXTROSE 5% WATER 50 ML IV SCH (22:56)
[2021-11-15] VITALS (46 sets, daily range): BP systolic 95–154; BP diastolic 45–82
[2021-11-15] MEDS: IPRATROPIUM/ALBUTEROL 0.5-3(2.5)MG/3ML NEB HHN SCH ×4 (02:17→19:53)
[2021-11-15 05:33] LABS: HEMOGLOBIN. 7.5 g/dL (12.0-16.0); MEAN CORPUSCULAR HEMOGLOBIN 29.1 pg (28.0-32.0); MEAN CORPUSCULAR VOLUME 85.2 fL (81.0-99.0); MEAN PLATELET VOLUME 8.3 fl (7.4-10.4); PLATELET 309 x1000/uL (130-400); RED BLOOD CELL COUNT 2.58 mill/uL (4.2-5.4); RED CELL DISTRIBUTION WIDTH 14.3 % (11.6-14.6)
[2021-11-15] MEDS: INSULIN LISPRO 100 UNITS/ML SUBCUT SCH ×4 (05:50→23:01)
[2021-11-15] MEDS: BLOOD SUGAR DIAGNOSTIC STRIP TEST SCH ×4 (05:51→23:00)
[2021-11-15] MEDS: LORAZEPAM 2MG/ML CPJ IV PRN ×2 (05:58→22:15)
[2021-11-15] MEDS: METOCLOPRAMIDE HCL 10MG/2ML VIAL IV SCH ×3 (05:58→22:55)
[2021-11-15] MEDS ORDERED: SODIUM BICARBONATE 4% (2.4MEQ) 5ML VIAL IV ONE (08:11)
[2021-11-15] MEDS: DEXTROSE 50% WATER 50ML SYRINGE IV PRN (09:55)
[2021-11-15] MEDS: DEXT 5%/0.45% NACL 1000ML 1,000 ML IV SCH ×2 (09:57→20:43)
[2021-11-15] MEDS: INSULIN GLARGINE UD 100 UNITS/ML SYR SUBCUT SCH ×2 (10:00→22:56)
[2021-11-15] MEDS: CITRIC ACID/SODIUM CITRATE SOLN 30ML UDC PO SCH ×3 (10:08→17:00)
[2021-11-15] MEDS: PANTOPRAZOLE SODIUM 40 MG/VIAL IV SCH ×2 (10:09→18:31)
[2021-11-15] MEDS: ASCORBIC ACID 500 MG TABLET PO SCH (10:09)
[2021-11-15] MEDS: MIDODRINE HCL 5MG TABLET PO SCH ×3 (10:10→17:00)
[2021-11-15] MEDS: ZINC SULFATE 220 MG ( 50 ) CAPSULE PO SCH (10:10)
[2021-11-15 12:38] LABS: PLATELET ESTIMATE NORMAL
[2021-11-15 14:34] LABS: BG BASE EXCESS -5.9 mmol/L (-2.0-2.0); BG CARBOXYHEMOGLOBIN 2.1 % (0.5-1.5); BG DEOXYHEMOGLOBIN 5.5 % (0.0-5.0); BG FRACTION INSPIRED OXYGEN 21; BG HCO3 ACT 19.1 mmol/L (22.0-26.0); BG METHEMOGLOBIN 0.2 % (0.0-1.5); BG OXYGEN SATURATION 94.4 % (92.0-98.5); BG OXYHEMOGLOBIN 92.2 % (94.0-97.0); BG PCO2 35.1 mmHg (35.0-45.0); BG PH 7.353 (7.350-7.450); BG PO2 73.8 mmHg (75.0-100.0); BG SAMPLE SITE LEFT RADIAL; BG TOTAL HEMOGLOBIN 7.6 g/dL (12.0-18.0); BG VENT MODE ROOM AIR
[2021-11-15 17:35] LABS: HEMATOCRIT 22.8 % (36.0-48.0); HEMOGLOBIN 7.3 g/dL (12.0-16.0)
[2021-11-15] MEDS: MORPHINE SULFATE 2 MG/ML CPJ (NOT FOR IM USE) IV PRN (20:42)
[2021-11-15] MEDS: CEFTRIAXONE 2 G in DEXTROSE 5% WATER 50 ML IV SCH (22:57)
[2021-11-16] VITALS (43 sets, daily range): BP systolic 111–166; BP diastolic 56–120
[2021-11-16] MEDS: IPRATROPIUM/ALBUTEROL 0.5-3(2.5)MG/3ML NEB HHN SCH ×4 (02:11→20:43)
[2021-11-16] MEDS: MORPHINE SULFATE 2 MG/ML CPJ (NOT FOR IM USE) IV PRN ×2 (04:36→19:08)
[2021-11-16 05:22] LABS: CHLORIDE 122 mEq/L (98-107)
[2021-11-16 05:24] LABS: HEMATOCRIT. 25.3 % (36.0-48.0); MEAN CORPUSCULAR HEMOGLOBIN 27.5 pg (28.0-32.0); MEAN CORPUSCULAR VOLUME 86.9 fL (81.0-99.0); MEAN PLATELET VOLUME 9.2 fl (7.4-10.4); PLATELET 207 x1000/uL (130-400); RED BLOOD CELL COUNT 2.92 mill/uL (4.2-5.4); RED CELL DISTRIBUTION WIDTH 14.8 % (11.6-14.6)
[2021-11-16] MEDS: BLOOD SUGAR DIAGNOSTIC STRIP TEST SCH ×3 (05:53→18:00)
[2021-11-16] MEDS: INSULIN LISPRO 100 UNITS/ML SUBCUT SCH ×4 (05:53→23:49)
[2021-11-16] MEDS: METOCLOPRAMIDE HCL 10MG/2ML VIAL IV SCH ×3 (05:56→21:35)
[2021-11-16] MEDS: MIDODRINE HCL 5MG TABLET PO SCH ×3 (09:00→17:00)
[2021-11-16] MEDS: PANTOPRAZOLE SODIUM 40 MG/VIAL IV SCH ×2 (09:05→19:06)
[2021-11-16] MEDS: ASCORBIC ACID 500 MG TABLET PO SCH (09:05)
[2021-11-16] MEDS: ZINC SULFATE 220 MG ( 50 ) CAPSULE PO SCH (09:05)
[2021-11-16] MEDS: CITRIC ACID/SODIUM CITRATE SOLN 30ML UDC PO SCH ×3 (09:05→17:00)
[2021-11-16 09:55] LABS: NUCLEATED RED BLOOD CELLS 1 /100 WBC; PLATELET ESTIMATE NORMAL
[2021-11-16] MEDS: INSULIN GLARGINE UD 100 UNITS/ML SYR SUBCUT SCH ×2 (10:00→21:33)
[2021-11-16] MEDS ORDERED: VANCOMYCIN 750MG PREMIX 150 ML IV SCH (11:00)
[2021-11-16] MEDS: DEXT 5%/0.45% NACL 1000ML 1,000 ML IV SCH (11:18)
[2021-11-16] MEDS: DEXTROSE 5% WATER 1,000 ML IV SCH (12:08)
[2021-11-16] MEDS ORDERED: LORAZEPAM 2MG/ML CPJ IM NR (12:45)
[2021-11-16] MEDS ORDERED: LIDOCAINE HCL 1% 10 MG/ML 10ML VIAL ONE (13:20)
[2021-11-16] MEDS: LORAZEPAM 2MG/ML CPJ IV PRN (21:42)
[2021-11-16] MEDS: CEFTRIAXONE 2 G in DEXTROSE 5% WATER 50 ML IV SCH (23:00)
[2021-11-17] VITALS (37 sets, daily range): BP systolic 114–177; BP diastolic 57–122
[2021-11-17] MEDS: IPRATROPIUM/ALBUTEROL 0.5-3(2.5)MG/3ML NEB HHN SCH ×4 (01:16→20:39)
[2021-11-17] MEDS: DEXTROSE 5% WATER 1,000 ML IV SCH ×2 (01:20→15:11)
[2021-11-17] MEDS: METOCLOPRAMIDE HCL 10MG/2ML VIAL IV SCH ×3 (05:06→21:49)
[2021-11-17 05:20] LABS: HEMATOCRIT. 22.9 % (36.0-48.0); HEMOGLOBIN. 7.5 g/dL (12.0-16.0); MEAN CORPUSCULAR HEMOGLOBIN 28.3 pg (28.0-32.0); MEAN CORPUSCULAR VOLUME 86.9 fL (81.0-99.0); MEAN PLATELET VOLUME 7.4 fl (7.4-10.4); PLATELET 372 x1000/uL (130-400); RED BLOOD CELL COUNT 2.64 mill/uL (4.2-5.4); RED CELL DISTRIBUTION WIDTH 14.5 % (11.6-14.6)
[2021-11-17] MEDS: BLOOD SUGAR DIAGNOSTIC STRIP TEST SCH ×5 (05:24→23:28)
[2021-11-17] MEDS: INSULIN LISPRO 100 UNITS/ML SUBCUT SCH ×4 (05:24→23:32)
[2021-11-17 06:06] LABS: CHLORIDE 126 mEq/L (98-107)
[2021-11-17 06:21] LABS: PHOSPHORUS 4.5 mg/dL (2.5-4.9)
[2021-11-17 08:59] LABS: PLATELET ESTIMATE NORMAL
[2021-11-17] MEDS: MIDODRINE HCL 5MG TABLET PO SCH ×2 (09:00→13:00)
[2021-11-17] MEDS: PANTOPRAZOLE SODIUM 40 MG/VIAL IV SCH ×2 (09:03→16:24)
[2021-11-17] MEDS: ASCORBIC ACID 500 MG TABLET PO SCH (09:49)
[2021-11-17] MEDS: ZINC SULFATE 220 MG ( 50 ) CAPSULE PO SCH (09:49)
[2021-11-17] MEDS: CITRIC ACID/SODIUM CITRATE SOLN 30ML UDC PO SCH ×3 (09:49→16:24)
[2021-11-17] MEDS: INSULIN GLARGINE UD 100 UNITS/ML SYR SUBCUT SCH ×2 (10:00→23:32)
[2021-11-17] MEDS: LORAZEPAM 2MG/ML CPJ IV PRN ×2 (11:43→18:27)
[2021-11-17 12:56] LABS: BG BASE EXCESS -2.8 mmol/L (-2.0-2.0); BG CARBOXYHEMOGLOBIN 0.6 % (0.5-1.5); BG DEOXYHEMOGLOBIN 3.2 % (0.0-5.0); BG FRACTION INSPIRED OXYGEN 21; BG HCO3 ACT 21.2 mmol/L (22.0-26.0); BG METHEMOGLOBIN 0.1 % (0.0-1.5); BG OXYGEN SATURATION 96.8 % (92.0-98.5); BG OXYHEMOGLOBIN 96.1 % (94.0-97.0); BG PCO2 33.7 mmHg (35.0-45.0); BG PH 7.417 (7.350-7.450); BG PO2 90.3 mmHg (75.0-100.0); BG SAMPLE SITE LEFT RADIAL; BG TOTAL HEMOGLOBIN 8.9 g/dL (12.0-18.0); BG VENT MODE ROOM AIR
[2021-11-17] MEDS ORDERED: METOPROLOL TARTRATE 25MG TABLET PO NR (15:15)
[2021-11-17] MEDS: METOPROLOL TARTRATE 25MG TABLET PO SCH (21:49)
[2021-11-17] MEDS: CEFTRIAXONE 2 G in DEXTROSE 5% WATER 50 ML IV SCH (23:31)
[2021-11-18] VITALS (21 sets, daily range): BP systolic 117–166; BP diastolic 36–99
[2021-11-18] MEDS: IPRATROPIUM/ALBUTEROL 0.5-3(2.5)MG/3ML NEB HHN SCH ×5 (00:50→20:45)
[2021-11-18 05:17] LABS: HEMATOCRIT. 27.5 % (36.0-48.0); HEMOGLOBIN. 8.9 g/dL (12.0-16.0); MEAN CORPUSCULAR VOLUME 87.1 fL (81.0-99.0); MEAN PLATELET VOLUME 8.1 fl (7.4-10.4); PLATELET 428 x1000/uL (130-400); RED BLOOD CELL COUNT 3.16 mill/uL (4.2-5.4)
[2021-11-18 05:30] LABS: CHLORIDE 127 mEq/L (98-107)
[2021-11-18 05:45] LABS: PHOSPHORUS 4.3 mg/dL (2.5-4.9)
[2021-11-18] MEDS: BLOOD SUGAR DIAGNOSTIC STRIP TEST SCH ×3 (06:10→18:26)
[2021-11-18] MEDS: METOCLOPRAMIDE HCL 10MG/2ML VIAL IV SCH ×3 (06:10→21:04)
[2021-11-18] MEDS: INSULIN LISPRO 100 UNITS/ML SUBCUT SCH ×3 (06:13→18:00)
[2021-11-18] MEDS: DEXTROSE 5% WATER 1,000 ML IV SCH ×2 (06:15→21:04)
[2021-11-18 10:41] LABS: NUCLEATED RED BLOOD CELLS 4 /100 WBC
[2021-11-18 10:42] LABS: PLATELET ESTIMATE SLIGHTLY INCREASED
[2021-11-18] MEDS ORDERED: VANCOMYCIN 1.25GM PMX (XELLIA) 250 ML IV NR (11:00)
[2021-11-18] MEDS: CITRIC ACID/SODIUM CITRATE SOLN 30ML UDC PO SCH ×3 (11:55→17:00)
[2021-11-18] MEDS: ASCORBIC ACID 500 MG TABLET PO SCH (11:56)
[2021-11-18] MEDS: METOPROLOL TARTRATE 25MG TABLET PO SCH ×2 (11:56→21:00)
[2021-11-18] MEDS: ZINC SULFATE 220 MG ( 50 ) CAPSULE PO SCH (11:56)
[2021-11-18] MEDS: INSULIN GLARGINE UD 100 UNITS/ML SYR SUBCUT SCH ×2 (11:58→21:44)
[2021-11-18] MEDS: PANTOPRAZOLE SODIUM 40 MG/VIAL IV SCH ×2 (14:31→17:26)
[2021-11-18] MEDS: LORAZEPAM 2MG/ML CPJ IV PRN (21:05)
[2021-11-18] MEDS: CEFTRIAXONE 2 G in DEXTROSE 5% WATER 50 ML IV SCH (22:54)
[2021-11-19] VITALS (8 sets, daily range): BP systolic 137–166; BP diastolic 67–97
[2021-11-19] MEDS: BLOOD SUGAR DIAGNOSTIC STRIP TEST SCH ×5 (00:01→23:21)
[2021-11-19] MEDS: IPRATROPIUM/ALBUTEROL 0.5-3(2.5)MG/3ML NEB HHN SCH ×4 (02:15→20:55)
[2021-11-19] MEDS: HALOPERIDOL LACTATE 5MG/ML VIAL IM PRN ×2 (04:25→20:32)
[2021-11-19] MEDS: INSULIN LISPRO 100 UNITS/ML SUBCUT SCH ×5 (05:23→23:26)
[2021-11-19] MEDS: METOCLOPRAMIDE HCL 10MG/2ML VIAL IV SCH ×3 (05:34→22:46)
[2021-11-19 06:12] LABS: CHLORIDE 127 mEq/L (98-107)
[2021-11-19 06:23] LABS: PHOSPHORUS 3.7 mg/dL (2.5-4.9)
[2021-11-19 06:25] LABS: BASOPHILS % 0.4 % (0.0-2.0); EOSINOPHILS % 1.7 % (0.0-5.0); HEMATOCRIT. 24.4 % (36.0-48.0); HEMOGLOBIN. 8.1 g/dL (12.0-16.0); LYMPHOCYTES % 12.1 % (20.0-50.0); MEAN CORPUSCULAR HEMOGLOBIN 28.7 pg (28.0-32.0); MEAN CORPUSCULAR VOLUME 86.6 fL (81.0-99.0); MEAN PLATELET VOLUME 7.3 fl (7.4-10.4); MONOCYTES % 7.9 % (2.0-8.0); NEUTROPHILS % 77.9 % (40.0-76.0); PLATELET 409 x1000/uL (130-400); RED BLOOD CELL COUNT 2.82 mill/uL (4.2-5.4)
[2021-11-19] MEDS: DEXTROSE 5% WATER 1,000 ML IV SCH ×2 (06:30→11:26)
[2021-11-19] MEDS: CITRIC ACID/SODIUM CITRATE SOLN 30ML UDC PO SCH ×3 (08:51→18:16)
[2021-11-19] MEDS: METOPROLOL TARTRATE 25MG TABLET PO SCH (08:52)
[2021-11-19] MEDS: PANTOPRAZOLE SODIUM 40 MG/VIAL IV SCH ×2 (08:52→18:16)
[2021-11-19] MEDS: ZINC SULFATE 220 MG ( 50 ) CAPSULE PO SCH (08:52)
[2021-11-19] MEDS: ASCORBIC ACID 500 MG TABLET PO SCH (08:57)
[2021-11-19] MEDS: INSULIN GLARGINE UD 100 UNITS/ML SYR SUBCUT SCH ×2 (09:15→22:48)
[2021-11-19] MEDS ORDERED: METOPROLOL TARTRATE 25MG TABLET PO NR (10:45)
[2021-11-19 13:07] LABS: OVA & PARASITE EXAM Final report (.)
[2021-11-19] MEDS: METRONIDAZOLE 500MG TABLET PO SCH ×2 (16:21→22:46)
[2021-11-19] MEDS: METOPROLOL TARTRATE 50MG TABLET PO SCH (20:32)
[2021-11-19] MEDS: CEFTRIAXONE 2 G in DEXTROSE 5% WATER 50 ML IV SCH (22:46)
[2021-11-19] MEDS: LORAZEPAM 2MG/ML CPJ IV PRN (22:46)
[2021-11-20] VITALS (7 sets, daily range): BP systolic 122–152; BP diastolic 66–94
[2021-11-20] MEDS: DEXTROSE 5% WATER 1,000 ML IV SCH ×2 (01:42→12:20)
[2021-11-20] MEDS: IPRATROPIUM/ALBUTEROL 0.5-3(2.5)MG/3ML NEB HHN SCH ×4 (02:40→20:00)
[2021-11-20 06:10] LABS: BASOPHILS % 0.7 % (0.0-2.0); HEMATOCRIT. 23.4 % (36.0-48.0); HEMOGLOBIN. 7.8 g/dL (12.0-16.0); LYMPHOCYTES % 13.9 % (20.0-50.0); MEAN CORPUSCULAR HEMOGLOBIN 28.8 pg (28.0-32.0); MEAN CORPUSCULAR VOLUME 86.1 fL (81.0-99.0); MEAN PLATELET VOLUME 7.5 fl (7.4-10.4); MONOCYTES % 6.7 % (2.0-8.0); NEUTROPHILS % 76.7 % (40.0-76.0); PLATELET 373 x1000/uL (130-400); RED BLOOD CELL COUNT 2.71 mill/uL (4.2-5.4); RED CELL DISTRIBUTION WIDTH 14.8 % (11.6-14.6)
[2021-11-20] MEDS: METOCLOPRAMIDE HCL 10MG/2ML VIAL IV SCH ×3 (06:20→22:20)
[2021-11-20] MEDS: METRONIDAZOLE 500MG TABLET PO SCH ×3 (06:20→22:19)
[2021-11-20] MEDS: BLOOD SUGAR DIAGNOSTIC STRIP TEST SCH ×2 (06:20→12:00)
[2021-11-20] MEDS: INSULIN LISPRO 100 UNITS/ML SUBCUT SCH ×2 (06:30→16:19)
[2021-11-20 06:32] LABS: CHLORIDE 125 mEq/L (98-107)
[2021-11-20 06:41] LABS: PHOSPHORUS 3.1 mg/dL (2.5-4.9)
[2021-11-20] MEDS ORDERED: POTASSIUM CHLORIDE 20MEQ TABLET SR PO SCH (09:00)
[2021-11-20] MEDS: ASCORBIC ACID 500 MG TABLET PO SCH (10:35)
[2021-11-20] MEDS: CITRIC ACID/SODIUM CITRATE SOLN 30ML UDC PO SCH ×3 (10:35→16:19)
[2021-11-20] MEDS: ZINC SULFATE 220 MG ( 50 ) CAPSULE PO SCH (10:35)
[2021-11-20] MEDS: METOPROLOL TARTRATE 50MG TABLET PO SCH ×2 (10:37→20:49)
[2021-11-20] MEDS: INSULIN GLARGINE UD 100 UNITS/ML SYR SUBCUT SCH ×2 (10:52→22:21)
[2021-11-20] MEDS ORDERED: MAGNESIUM 2 G PREMIX 50 ML IV SCH (11:00)
[2021-11-20] MEDS: PANTOPRAZOLE SODIUM 40 MG/VIAL IV SCH ×2 (11:38→16:15)
[2021-11-20] MEDS: LORAZEPAM 2MG/ML CPJ IV PRN (11:39)
[2021-11-20] MEDS: HALOPERIDOL LACTATE 5MG/ML VIAL IM PRN (16:15)
[2021-11-20] MEDS: ACETAMINOPHEN 325MG TABLET PO PRN ×2 (16:22→22:20)
[2021-11-21] VITALS: BP 139/73
[2021-11-21] MEDS: LORAZEPAM 2MG/ML CPJ IV PRN ×3 (01:09→15:42)
[2021-11-21] MEDS: INSULIN LISPRO 100 UNITS/ML SUBCUT SCH ×4 (01:10→18:47)
[2021-11-21] MEDS: DEXTROSE 5% WATER 1,000 ML IV SCH ×4 (01:34→18:02)
[2021-11-21] MEDS: IPRATROPIUM/ALBUTEROL 0.5-3(2.5)MG/3ML NEB HHN SCH ×4 (01:50→21:17)
[2021-11-21 04:00] VITALS: BP 122/59
[2021-11-21] MEDS: BLOOD SUGAR DIAGNOSTIC STRIP TEST SCH ×5 (05:06→23:44)
[2021-11-21] MEDS: METRONIDAZOLE 500MG TABLET PO SCH ×3 (05:08→21:43)
[2021-11-21] MEDS: METOCLOPRAMIDE HCL 10MG/2ML VIAL IV SCH ×3 (05:08→21:44)
[2021-11-21 06:21] LABS: CHLORIDE 122 mEq/L (98-107)
[2021-11-21 06:23] LABS: BASOPHILS % 0.3 % (0.0-2.0); EOSINOPHILS % 0.9 % (0.0-5.0); HEMATOCRIT. 24.3 % (36.0-48.0); HEMOGLOBIN. 7.9 g/dL (12.0-16.0); LYMPHOCYTES % 8.9 % (20.0-50.0); MEAN CORPUSCULAR HEMOGLOBIN 28.1 pg (28.0-32.0); MEAN CORPUSCULAR VOLUME 86.9 fL (81.0-99.0); MEAN PLATELET VOLUME 7.8 fl (7.4-10.4); MONOCYTES % 5.6 % (2.0-8.0); NEUTROPHILS % 84.3 % (40.0-76.0); PLATELET 317 x1000/uL (130-400); RED CELL DISTRIBUTION WIDTH 14.9 % (11.6-14.6)
[2021-11-21 06:28] LABS: PHOSPHORUS 3.3 mg/dL (2.5-4.9)
[2021-11-21 08:00] VITALS: BP 124/74
[2021-11-21] MEDS: ASCORBIC ACID 500 MG TABLET PO SCH (08:36)
[2021-11-21] MEDS: METOPROLOL TARTRATE 50MG TABLET PO SCH ×2 (08:36→21:44)
[2021-11-21] MEDS: ZINC SULFATE 220 MG ( 50 ) CAPSULE PO SCH (08:36)
[2021-11-21] MEDS: CITRIC ACID/SODIUM CITRATE SOLN 30ML UDC PO SCH ×3 (08:36→17:56)
[2021-11-21] MEDS: ACETAMINOPHEN 325MG TABLET PO PRN ×3 (08:36→21:43)
[2021-11-21] MEDS: PANTOPRAZOLE SODIUM 40 MG/VIAL IV SCH ×2 (08:37→17:56)
[2021-11-21] MEDS ORDERED: POTASSIUM CHLORIDE 20MEQ TABLET SR PO SCH (09:00)
[2021-11-21] MEDS: INSULIN GLARGINE UD 100 UNITS/ML SYR SUBCUT SCH ×2 (10:46→21:45)
[2021-11-21 12:00] VITALS: BP 110/54
[2021-11-21 16:00] VITALS: BP 134/69
[2021-11-21 20:00] VITALS: BP 127/68
[2021-11-21] MEDS: HALOPERIDOL LACTATE 5MG/ML VIAL IM PRN (21:55)
[2021-11-22] VITALS: BP 129/75
[2021-11-22] MEDS: DEXTROSE 5% WATER 1,000 ML IV SCH ×2 (03:12→12:00)
[2021-11-22 04:00] VITALS: BP 137/74
[2021-11-22] MEDS: IPRATROPIUM/ALBUTEROL 0.5-3(2.5)MG/3ML NEB HHN SCH ×4 (04:38→20:40)
[2021-11-22] MEDS: METOCLOPRAMIDE HCL 10MG/2ML VIAL IV SCH ×2 (05:58→13:57)
[2021-11-22] MEDS: METRONIDAZOLE 500MG TABLET PO SCH ×3 (05:58→22:00)
[2021-11-22] MEDS: BLOOD SUGAR DIAGNOSTIC STRIP TEST SCH ×3 (05:58→17:04)
[2021-11-22] MEDS: INSULIN LISPRO 100 UNITS/ML SUBCUT SCH ×4 (06:00→17:04)
[2021-11-22 06:13] LABS: CHLORIDE 119 mEq/L (98-107)
[2021-11-22 06:18] LABS: PHOSPHORUS 3.4 mg/dL (2.5-4.9)
[2021-11-22 06:40] LABS: BASOPHILS % 0.4 % (0.0-2.0); EOSINOPHILS % 1.8 % (0.0-5.0); HEMATOCRIT. 25.5 % (36.0-48.0); HEMOGLOBIN. 8.1 g/dL (12.0-16.0); LYMPHOCYTES % 9.3 % (20.0-50.0); MEAN CORPUSCULAR HEMOGLOBIN 27.6 pg (28.0-32.0); MEAN CORPUSCULAR VOLUME 86.4 fL (81.0-99.0); MEAN PLATELET VOLUME 8.1 fl (7.4-10.4); MONOCYTES % 6.3 % (2.0-8.0); NEUTROPHILS % 82.2 % (40.0-76.0); PLATELET 300 x1000/uL (130-400); RED BLOOD CELL COUNT 2.95 mill/uL (4.2-5.4); RED CELL DISTRIBUTION WIDTH 14.9 % (11.6-14.6)
[2021-11-22 08:00] VITALS: BP 132/65
[2021-11-22] MEDS: PANTOPRAZOLE SODIUM 40 MG/VIAL IV SCH ×2 (08:22→17:03)
[2021-11-22] MEDS: METOPROLOL TARTRATE 50MG TABLET PO SCH ×2 (08:22→22:01)
[2021-11-22] MEDS: ASCORBIC ACID 500 MG TABLET PO SCH (08:22)
[2021-11-22] MEDS: CITRIC ACID/SODIUM CITRATE SOLN 30ML UDC PO SCH ×3 (08:22→17:03)
[2021-11-22] MEDS: ZINC SULFATE 220 MG ( 50 ) CAPSULE PO SCH (08:22)
[2021-11-22] MEDS ORDERED: LORAZEPAM 2MG/ML CPJ IV PRN (08:30)
[2021-11-22] MEDS: ACETAMINOPHEN 325MG TABLET PO PRN ×3 (08:59→22:02)
[2021-11-22] MEDS ORDERED: POTASSIUM CHLORIDE 20MEQ TABLET SR PO NR (09:30)
[2021-11-22] MEDS: INSULIN GLARGINE UD 100 UNITS/ML SYR SUBCUT SCH ×2 (10:00→22:02)
[2021-11-22 12:00] VITALS: BP 131/77
[2021-11-22] MEDS: LORAZEPAM 0.5MG TABLET PO PRN ×2 (15:00→22:01)
[2021-11-22 16:42] VITALS: BP 126/66
[2021-11-22 20:00] VITALS: BP 127/70
[2021-11-23] MEDS: INSULIN LISPRO 100 UNITS/ML SUBCUT SCH ×4 (00:03→18:00)
[2021-11-23] MEDS: HALOPERIDOL LACTATE 5MG/ML VIAL IM PRN ×2 (00:04→21:56)
[2021-11-23] MEDS: DEXTROSE 5% WATER 1,000 ML IV SCH ×3 (00:04→21:59)
[2021-11-23] MEDS: BLOOD SUGAR DIAGNOSTIC STRIP TEST SCH ×4 (00:04→18:44)
[2021-11-23 03:38] VITALS: BP 107/74
[2021-11-23] MEDS: METRONIDAZOLE 500MG TABLET PO SCH ×3 (05:26→21:56)
[2021-11-23] MEDS: ACETAMINOPHEN 325MG TABLET PO PRN (05:26)
[2021-11-23 07:12] LABS: BASOPHILS % 0.3 % (0.0-2.0); EOSINOPHILS % 1.6 % (0.0-5.0); HEMATOCRIT. 22.2 % (36.0-48.0); HEMOGLOBIN. 7.5 g/dL (12.0-16.0); LYMPHOCYTES % 15.3 % (20.0-50.0); MEAN CORPUSCULAR HEMOGLOBIN 29.2 pg (28.0-32.0); MEAN CORPUSCULAR VOLUME 86.5 fL (81.0-99.0); MEAN PLATELET VOLUME 8.3 fl (7.4-10.4); MONOCYTES % 8.2 % (2.0-8.0); NEUTROPHILS % 74.6 % (40.0-76.0); PLATELET 243 x1000/uL (130-400); RED BLOOD CELL COUNT 2.57 mill/uL (4.2-5.4); RED CELL DISTRIBUTION WIDTH 14.6 % (11.6-14.6)
[2021-11-23 07:34] LABS: CHLORIDE 118 mEq/L (98-107)
[2021-11-23 07:42] VITALS: BP 98/63
[2021-11-23 07:42] LABS: PHOSPHORUS 3.6 mg/dL (2.5-4.9)
[2021-11-23] MEDS: IPRATROPIUM/ALBUTEROL 0.5-3(2.5)MG/3ML NEB HHN SCH ×4 (08:30→20:20)
[2021-11-23] MEDS: METOPROLOL TARTRATE 50MG TABLET PO SCH ×2 (09:00→21:56)
[2021-11-23] MEDS: ASCORBIC ACID 500 MG TABLET PO SCH (09:46)
[2021-11-23] MEDS: CITRIC ACID/SODIUM CITRATE SOLN 30ML UDC PO SCH ×3 (09:46→17:03)
[2021-11-23] MEDS: ZINC SULFATE 220 MG ( 50 ) CAPSULE PO SCH (09:46)
[2021-11-23] MEDS: PANTOPRAZOLE SODIUM 40 MG/VIAL IV SCH ×2 (09:46→17:03)
[2021-11-23] MEDS: INSULIN GLARGINE UD 100 UNITS/ML SYR SUBCUT SCH ×2 (10:43→22:25)
[2021-11-23] MEDS ORDERED: POTASSIUM CHLORIDE INJ 40 MEQ in DEXT 5% WATER 250 ML IV ONE (11:30)
[2021-11-23 11:42] VITALS: BP 133/73
[2021-11-23 13:16] LABS: BG BASE EXCESS 0.2 mmol/L (-2.0-2.0); BG CARBOXYHEMOGLOBIN 0.7 % (0.5-1.5); BG DEOXYHEMOGLOBIN 6.8 % (0.0-5.0); BG FRACTION INSPIRED OXYGEN 21; BG HCO3 ACT 23.9 mmol/L (22.0-26.0); BG METHEMOGLOBIN 0.3 % (0.0-1.5); BG OXYGEN SATURATION 93.1 % (92.0-98.5); BG OXYHEMOGLOBIN 92.2 % (94.0-97.0); BG PCO2 35.3 mmHg (35.0-45.0); BG PH 7.449 (7.350-7.450); BG PO2 65.9 mmHg (75.0-100.0); BG SAMPLE SITE RIGHT RADIAL; BG TOTAL HEMOGLOBIN 9.6 g/dL (12.0-18.0); BG VENT MODE ROOM AIR
[2021-11-23] MEDS: KCL 20MEQ/100ML X 2 FOR TOTAL KCL 40MEQ/200ML IV SCH ×2 (14:58→17:03)
[2021-11-23] MEDS ORDERED: NALOXONE HCL 0.4MG/ML VIAL IV PRN (15:00)
[2021-11-23] MEDS: HYDROCODONE/ACETAMINOPHEN 5/325MG TABLET PO PRN (15:05)
[2021-11-23 15:42] VITALS: BP 109/57
[2021-11-23] MEDS: DEXTROSE 50% WATER 50ML SYRINGE IV PRN ×2 (17:04→18:45)
[2021-11-23] MEDS ORDERED: MAGNESIUM 1 G PREMIX 100 ML IV NR (18:00)
[2021-11-23 20:00] VITALS: BP 153/90
[2021-11-23] MEDS: LORAZEPAM 0.5MG TABLET PO PRN (21:56)
[2021-11-23 22:00] VITALS: BP 150/83
[2021-11-24] VITALS (8 sets, daily range): BP systolic 125–159; BP diastolic 65–86
[2021-11-24] MEDS: IPRATROPIUM/ALBUTEROL 0.5-3(2.5)MG/3ML NEB HHN SCH ×4 (00:45→21:30)
[2021-11-24] MEDS: DEXTROSE 5% WATER 1,000 ML IV SCH (02:04)
[2021-11-24] MEDS: HYDROCODONE/ACETAMINOPHEN 5/325MG TABLET PO PRN ×2 (02:59→22:48)
[2021-11-24] MEDS: METRONIDAZOLE 500MG TABLET PO SCH ×2 (05:19→14:00)
[2021-11-24 05:37] LABS: BASOPHILS % 0.3 % (0.0-2.0); EOSINOPHILS % 0.7 % (0.0-5.0); HEMATOCRIT. 25.7 % (36.0-48.0); HEMOGLOBIN. 8.4 g/dL (12.0-16.0); LYMPHOCYTES % 8.1 % (20.0-50.0); MEAN CORPUSCULAR HEMOGLOBIN 28.3 pg (28.0-32.0); MEAN CORPUSCULAR VOLUME 86.4 fL (81.0-99.0); MEAN PLATELET VOLUME 8.7 fl (7.4-10.4); MONOCYTES % 7.4 % (2.0-8.0); NEUTROPHILS % 83.5 % (40.0-76.0); PLATELET 271 x1000/uL (130-400); RED BLOOD CELL COUNT 2.98 mill/uL (4.2-5.4); RED CELL DISTRIBUTION WIDTH 14.8 % (11.6-14.6)
[2021-11-24] MEDS: BLOOD SUGAR DIAGNOSTIC STRIP TEST SCH ×4 (05:50→17:06)
[2021-11-24] MEDS: INSULIN LISPRO 100 UNITS/ML SUBCUT SCH ×4 (06:00→17:06)
[2021-11-24 06:13] LABS: CHLORIDE 119 mEq/L (98-107)
[2021-11-24 06:23] LABS: PHOSPHORUS 3.4 mg/dL (2.5-4.9)
[2021-11-24] MEDS: METOPROLOL TARTRATE 50MG TABLET PO SCH ×2 (09:00→21:37)
[2021-11-24] MEDS: INSULIN GLARGINE UD 100 UNITS/ML SYR SUBCUT SCH ×2 (10:00→21:37)
[2021-11-24] MEDS: CITRIC ACID/SODIUM CITRATE SOLN 30ML UDC PO SCH ×3 (10:45→17:14)
[2021-11-24] MEDS: PANTOPRAZOLE SODIUM 40 MG/VIAL IV SCH ×2 (10:45→17:14)
[2021-11-24] MEDS: ASCORBIC ACID 500 MG TABLET PO SCH (10:45)
[2021-11-24] MEDS: ZINC SULFATE 220 MG ( 50 ) CAPSULE PO SCH (10:46)
[2021-11-24] MEDS ORDERED: MAGNESIUM 2 G PREMIX 50 ML IV SCH (11:00)
[2021-11-24 21:07] LABS: INR 1.2; PROTHROMBIN TIME 12.7 sec (9.6-11.0)
[2021-11-25] VITALS: BP 134/65
[2021-11-25] MEDS: BLOOD SUGAR DIAGNOSTIC STRIP TEST SCH ×4 (00:20→17:06)
[2021-11-25] MEDS: IPRATROPIUM/ALBUTEROL 0.5-3(2.5)MG/3ML NEB HHN SCH ×4 (01:05→20:13)
[2021-11-25 04:00] VITALS: BP 145/78
[2021-11-25 05:36] LABS: BASOPHILS % 0.3 % (0.0-2.0); HEMATOCRIT. 23.6 % (36.0-48.0); HEMOGLOBIN. 7.7 g/dL (12.0-16.0); MEAN CORPUSCULAR HEMOGLOBIN 28.1 pg (28.0-32.0); MEAN CORPUSCULAR VOLUME 86.5 fL (81.0-99.0); MEAN PLATELET VOLUME 8.9 fl (7.4-10.4); MONOCYTES % 9.1 % (2.0-8.0); NEUTROPHILS % 75.6 % (40.0-76.0); PLATELET 234 x1000/uL (130-400); RED BLOOD CELL COUNT 2.73 mill/uL (4.2-5.4); RED CELL DISTRIBUTION WIDTH 14.5 % (11.6-14.6)
[2021-11-25] MEDS: HYDROCODONE/ACETAMINOPHEN 5/325MG TABLET PO PRN ×2 (05:46→22:06)
[2021-11-25] MEDS: INSULIN LISPRO 100 UNITS/ML SUBCUT SCH ×4 (06:00→17:11)
[2021-11-25 06:21] LABS: CHLORIDE 120 mEq/L (98-107)
[2021-11-25 06:30] LABS: PHOSPHORUS 3.5 mg/dL (2.5-4.9)
[2021-11-25 08:00] VITALS: BP 143/34
[2021-11-25] MEDS ORDERED: SODIUM BICARBONATE 4% (2.4MEQ) 5ML VIAL IV ONE (08:26)
[2021-11-25] MEDS: METOPROLOL TARTRATE 50MG TABLET PO SCH ×2 (09:58→21:48)
[2021-11-25] MEDS: ZINC SULFATE 220 MG ( 50 ) CAPSULE PO SCH (09:58)
[2021-11-25] MEDS: CITRIC ACID/SODIUM CITRATE SOLN 30ML UDC PO SCH ×3 (09:58→17:05)
[2021-11-25] MEDS: ASCORBIC ACID 500 MG TABLET PO SCH (09:58)
[2021-11-25] MEDS: PANTOPRAZOLE SODIUM 40 MG/VIAL IV SCH ×2 (09:58→17:06)
[2021-11-25] MEDS: INSULIN GLARGINE UD 100 UNITS/ML SYR SUBCUT SCH ×2 (11:31→22:00)
[2021-11-25 13:29] LABS: BG BASE EXCESS 3.7 mmol/L (-2.0-2.0); BG CARBOXYHEMOGLOBIN 0.9 % (0.5-1.5); BG DEOXYHEMOGLOBIN 6.3 % (0.0-5.0); BG FRACTION INSPIRED OXYGEN 28; BG METHEMOGLOBIN 0.1 % (0.0-1.5); BG OXYGEN SATURATION 93.6 % (92.0-98.5); BG OXYHEMOGLOBIN 92.7 % (94.0-97.0); BG PCO2 41.4 mmHg (35.0-45.0); BG PH 7.448 (7.350-7.450); BG PO2 68.6 mmHg (75.0-100.0); BG SAMPLE SITE LEFT RADIAL; BG TOTAL HEMOGLOBIN 8.4 g/dL (12.0-18.0); BG VENT MODE NASAL CANNULA
[2021-11-25 16:00] VITALS: BP 151/70
[2021-11-25 20:00] VITALS: BP 156/78
[2021-11-25] MEDS: GUAIFENESIN 600MG ER TABLET PO SCH (21:49)
[2021-11-25] MEDS: LORAZEPAM 0.5MG TABLET PO PRN (22:40)
[2021-11-26] VITALS: BP 141/69
[2021-11-26] MEDS: IPRATROPIUM/ALBUTEROL 0.5-3(2.5)MG/3ML NEB HHN SCH ×4 (01:06→21:16)
[2021-11-26] MEDS: DEXTROSE 5% WATER 1,000 ML IV SCH ×2 (01:18→01:20)
[2021-11-26 04:00] VITALS: BP 147/88
[2021-11-26] MEDS: INSULIN LISPRO 100 UNITS/ML SUBCUT SCH ×4 (06:00→18:00)
[2021-11-26 06:36] LABS: HEMATOCRIT 27.4 % (36.0-48.0); HEMOGLOBIN 8.8 g/dL (12.0-16.0); MEAN CORPUSCULAR HEMOGLOBIN 27.9 pg (28.0-32.0); MEAN CORPUSCULAR VOLUME 86.5 fL (81.0-99.0); PLATELET 273 x1000/uL (130-400); RED BLOOD CELL COUNT 3.16 mill/uL (4.2-5.4); RED CELL DISTRIBUTION WIDTH 14.8 % (11.6-14.6)
[2021-11-26] MEDS: BLOOD SUGAR DIAGNOSTIC STRIP TEST SCH ×4 (06:43→18:00)
[2021-11-26 06:55] LABS: CHLORIDE 119 mEq/L (98-107)
[2021-11-26 08:00] VITALS: BP 159/81
[2021-11-26] MEDS: HYDROCODONE/ACETAMINOPHEN 5/325MG TABLET PO PRN ×2 (08:14→18:14)
[2021-11-26] MEDS: GUAIFENESIN 600MG ER TABLET PO SCH (09:00)
[2021-11-26] MEDS: ASCORBIC ACID 500 MG TABLET PO SCH (09:09)
[2021-11-26] MEDS: ZINC SULFATE 220 MG ( 50 ) CAPSULE PO SCH (09:10)
[2021-11-26] MEDS: CITRIC ACID/SODIUM CITRATE SOLN 30ML UDC PO SCH (09:10)
[2021-11-26] MEDS: METOPROLOL TARTRATE 50MG TABLET PO SCH ×2 (09:10→21:42)
[2021-11-26] MEDS: PANTOPRAZOLE SODIUM 40 MG/VIAL IV SCH ×2 (09:14→17:35)
[2021-11-26] MEDS: INSULIN GLARGINE UD 100 UNITS/ML SYR SUBCUT SCH ×2 (10:27→21:41)
[2021-11-26 12:00] VITALS: BP 157/72
[2021-11-26 16:00] VITALS: BP 150/99
[2021-11-26 20:00] VITALS: BP 146/69
[2021-11-26] MEDS: ACETAMINOPHEN 325MG TABLET PO PRN (21:49)
[2021-11-26] MEDS: LORAZEPAM 0.5MG TABLET PO PRN (23:02)
[2021-11-27] VITALS: BP 108/53
[2021-11-27] MEDS: BLOOD SUGAR DIAGNOSTIC STRIP TEST SCH ×3 (00:06→12:43)
[2021-11-27] MEDS: IPRATROPIUM/ALBUTEROL 0.5-3(2.5)MG/3ML NEB HHN SCH ×3 (01:20→12:41)
[2021-11-27] MEDS: DEXTROSE 5% WATER 1,000 ML IV SCH (01:32)
[2021-11-27] MEDS: HYDROCODONE/ACETAMINOPHEN 5/325MG TABLET PO PRN ×2 (01:50→08:53)
[2021-11-27] MEDS: ACETAMINOPHEN 325MG TABLET PO PRN ×2 (05:57→14:29)
[2021-11-27] MEDS: INSULIN LISPRO 100 UNITS/ML SUBCUT SCH ×3 (06:00→12:00)
[2021-11-27 06:31] LABS: CHLORIDE 120 mEq/L (98-107)
[2021-11-27 06:35] LABS: BASOPHILS % 0.3 % (0.0-2.0); EOSINOPHILS % 1.7 % (0.0-5.0); HEMATOCRIT. 22.9 % (36.0-48.0); HEMOGLOBIN. 7.4 g/dL (12.0-16.0); LYMPHOCYTES % 19.1 % (20.0-50.0); MONOCYTES % 12.2 % (2.0-8.0); NEUTROPHILS % 66.7 % (40.0-76.0); PLATELET 230 x1000/uL (130-400); RED BLOOD CELL COUNT 2.66 mill/uL (4.2-5.4); RED CELL DISTRIBUTION WIDTH 14.7 % (11.6-14.6)
[2021-11-27 06:41] LABS: PHOSPHORUS 3.4 mg/dL (2.5-4.9)
[2021-11-27 08:00] VITALS: BP 143/76
[2021-11-27] MEDS: ASCORBIC ACID 500 MG TABLET PO SCH (08:51)
[2021-11-27] MEDS: ZINC SULFATE 220 MG ( 50 ) CAPSULE PO SCH (08:51)
[2021-11-27] MEDS: METOPROLOL TARTRATE 50MG TABLET PO SCH (08:52)
[2021-11-27] MEDS: PANTOPRAZOLE SODIUM 40 MG/VIAL IV SCH (08:56)
[2021-11-27] MEDS: INSULIN GLARGINE UD 100 UNITS/ML SYR SUBCUT SCH (10:00)
[2021-11-27 12:00] VITALS: BP 132/68
[2021-11-27 16:00] VITALS: BP 141/73
[2021-11-27 16:57] VITALS: BP 141/73
== END 2021-11-27 18:27 | DRG 870 ==
LOC: ER 10:29 → EDBEDREQTM 12:36 → EDBEDREQ 12:36 → EDBD 13:16 → MICUNO 13:16 → EDBEDREQ 13:34 → EDBEDREQTM 13:34 → EDBEDREQSVC 13:34 → ENRESERV 19:43 → MICUSO 11-07 09:48 → 5EST 11-18 09:57 → 6EST 11-24 22:16
PROVIDERS: ADMIT Internal Medicine; ATTEND Internal Medicine
PROC: 5A1955Z Respiratory Ventilation, Greater than 96 Consecutive Hours (ICD-10-PCS; 2021-11-06)
PROC: 0BH17EZ Insertion of Endotracheal Airway into Trachea, Via Natural or Artificial Opening (ICD-10-PCS; 2021-11-06)
PROC: 02HV33Z Insertion of Infusion Device into Superior Vena Cava, Percutaneous Approach (ICD-10-PCS; 2021-11-06)
PROC: B548ZZA Ultrasonography of Superior Vena Cava, Guidance (ICD-10-PCS; 2021-11-06)
PROC: 5A12012 Performance of Cardiac Output, Single, Manual (ICD-10-PCS; 2021-11-06)
PROC: 30233N1 Transfusion of Nonautologous Red Blood Cells into Peripheral Vein, Percutaneous Approach (ICD-10-PCS; principal; 2021-11-11)
PROC: 5A09357 Assistance with Respiratory Ventilation, Less than 24 Consecutive Hours, Continuous Positive Airway Pressure (ICD-10-PCS; 2021-11-15)
PROC: 5A09357 Assistance with Respiratory Ventilation, Less than 24 Consecutive Hours, Continuous Positive Airway Pressure (ICD-10-PCS; 2021-11-16)
PROC: 05H433Z Insertion of Infusion Device into Left Innominate Vein, Percutaneous Approach (ICD-10-PCS; 2021-11-16)
PROC: B54NZZA Ultrasonography of Left Upper Extremity Veins, Guidance (ICD-10-PCS; 2021-11-16)
PROC: 4A10X4Z Monitoring of Central Nervous Electrical Activity, External Approach (ICD-10-PCS; 2021-11-17)
PROC: 0W993ZZ Drainage of Right Pleural Cavity, Percutaneous Approach (ICD-10-PCS; 2021-11-25)
DX: A40.1 Sepsis due to streptococcus, group B (principal); E11.10 Type 2 diabetes mellitus with ketoacidosis without coma; R65.21 Severe sepsis with septic shock; E43 Unspecified severe protein-calorie malnutrition; I46.9 Cardiac arrest, cause unspecified; J96.01 Acute respiratory failure with hypoxia; G93.41 Metabolic encephalopathy; N17.0 Acute kidney failure with tubular necrosis; K72.00 Acute and subacute hepatic failure without coma; J69.0 Pneumonitis due to inhalation of food and vomit; I63.9 Cerebral infarction, unspecified; E87.0 Hyperosmolality and hypernatremia; M62.82 Rhabdomyolysis; Z68.42 Body mass index [BMI] 45.0-49.9, adult; J91.8 Pleural effusion in other conditions classified elsewhere; K92.2 Gastrointestinal hemorrhage, unspecified; F14.129 Cocaine abuse with intoxication, unspecified; E83.39 Other disorders of phosphorus metabolism; E83.42 Hypomagnesemia; E87.6 Hypokalemia; E66.01 Morbid (severe) obesity due to excess calories; D50.9 Iron deficiency anemia, unspecified; D69.6 Thrombocytopenia, unspecified; R13.10 Dysphagia, unspecified; Z20.822 Contact with and (suspected) exposure to COVID-19; L89.626 Pressure-induced deep tissue damage of left heel; S90.822A Blister (nonthermal), left foot, initial encounter; X58.XXXA Exposure to other specified factors, initial encounter; Y93.89 Activity, other specified; Y92.89 Other specified places as the place of occurrence of the external cause; Y99.8 Other external cause status; F19.10 Other psychoactive substance abuse, uncomplicated; S51.801A Unspecified open wound of right forearm, initial encounter; R19.7 Diarrhea, unspecified
CPT/HCPCS: 32555; 36415; 36600; 70551; 71045; 71250; 74176; 76604; 76705; 76770; 76937; 80048; 80053; 80076; 80202; 80305; 81003; 82010; 82040; 82140; 82270; 82375; 82550; 82607; 82728; 82746; 82805; 82962; 83036; 83540; 83550; 83605; 83615; 83735; 83880; 83935; 84100; 84145; 84478; 84484; 85014; 85018; 85025; 85027; 85044; 86705; 86709; 86803; 86850; 86900; 86920; 87015; 87045; 87070; 87077; 87177; 87186; 87209; 87340; 87389; 87426; 87427; 87449; 87493; 89055; 92610; 93005; 93306; 93923; 94002; 94003; 94640; 94660; 95816; 97116; 97162; 97530; 99291; A6261; C1725; C1769; C9113; J0610; J0696; J1630; J1815; J2060; J2250; J2270; J2370; J2405; J2543; J2765; J3370; J3475; J3480; J3490; J7030; J7040; J7050; J7060; J7070; P9016; A4315